=== PATIENT | male | born 1990 | race Caucasian/White ===

== ENCOUNTER 2018-01-12 23:11 | Emergency (ER) | payer BC ==
[2018-01-12 23:16] VITALS: BP 145/76
[2018-01-12] MEDS ORDERED: SILVER NITRATE APPLICATOR 1 APPL TP ONE (23:32)
--- NOTE | 2018-01-12 23:36 | EDPHY ---
H & P Stated Complaint: Cut L thumb on potato knife Source: Patient Exam Limitations: No limitations - Personal History Current Tetanus Diphtheria and Acellular Pertussis (TDAP): Yes - Medical/Surgical History Hx Asthma: No Hx Chronic Respiratory Disease: No Hx Diabetes: No Hx Cardiac Disease: No Hx Renal Disease: No Hx Cirrhosis: No Hx Alcoholism: No Hx HIV/AIDS: No Hx Splenectomy or Spleen Trauma: No Other PMH: kidney stone - Social History Smoking Status: Never smoked Time Seen by Provider: 01/12/18 23:23 HPI/ROS: HPI: This is a 27-year-old male who presents with Chief Complaint: Cut left thumb on knife Location: Left thumb Quality: Cut Duration: 3 hr prior to arrival Signs and Symptoms: + bleeding, no radiation, no numbness, no weakness, no tingling, no incontinence, no decreased range of motion, no swelling, no pain, no fever Timing: Acute Severity: Moderate Context: Patient is right-hand dominant, presents with accidentally cutting his left thumb finger tip on a [employer] chef knife while cutting potatoes for dinner this evening. Patient reports that he felt mild pain but quickly resolved. Patient reports that he applied a pressure dressing but the bleeding continued over the last 3 hr. He reports that the blood kept soaking through the Band-Aid. He does not take any blood thinners. He denies any paresthesias , decreased range of motion, nail involvement. Reports tetanus is current. Modifying Factors: Direct pressure, transient relief Comment: ROS: see HPI Constitutional: No fever, no chills, no weight loss Eyes: No blurred vision Respiratory: No shortness of breath, no cough Cardiovascular: No chest pain Gastrointestinal: No nausea, no vomiting no diarrhea Genitourinary: No dysuria Extremities: No myalgias Neurologic: No weakness, no numbness Skin: No rashes Hematologic: No bruising, no bleeding MEDICAL/SURGICAL/SOCIAL HISTORY: Medical history: Generally healthy. Does not take any regular medications. Surgical history: Denies Social history: Never smoked. Employed. CONSTITUTIONAL: awake and alert, no obvious distress HEENT: Atraumatic and normocephalic. NECK: supple EXTREMITIES: 2/2 pulses, strength 5/5, 1 cm superficial skin avulsion of the left thumb finger tip-active oozing of blood noted; nail intact. DIP/PIP/MCP flexion/extension intact with good light touch sensation. no deformities, no clubbing, no cyanosis or edema. NEUROLOGICAL: no focal neuro deficits. GCS 15. Light touch sensation intact. SKIN: Warm and dry, no erythema. no rash. Good capillary refill. (Jihan Abrams) Constitutional: Initial Vital Signs Temperature (C) 36.5 C 01/12/18 23:13 Heart Rate 72 01/12/18 23:13 Respiratory Rate 18 01/12/18 23:13 Blood Pressure 145/76 H 01/12/18 23:13 O2 Sat (%) 97 01/12/18 23:13 O2 Delivery Mode Room Air Allergies/Adverse Reactions: No Known Allergies Allergy (Unverified 01/12/18 23:13) Medical Decision Making Procedures: Procedure: Splint placement. A left thumb caged aluminum finger splint was applied by the Emergency Room explosive technician. After application of the splint I returned and re-examined the patient. The splint was adequately immobilizing the joint and distal to the splint the patient's circulation and sensation was intact. (Jihan Abrams) ED Course/Re-evaluation: Tetanus is current Local anesthetic applied of 1 mL of 1% lidocaine; irrigated copiously. Surgifoam and pressure dressing used to obtain good hemostasis. No indication for suture. Placed in cage finger splint to ensure no disruption of the area for the next 48 hr. No signs of neurovascular compromise/tenting of skin/compartment syndrome/ extremities and joints examined above and below area of concern and are neurovascularly intact. Verbal and written wound care instructions provided. This patient was seen under the supervision of my secondary supervising physician. I evaluated care for this patient independently. Discussed this patient with Dr. Elmore. (Jihan Abrams) PHYSICIAN DOCUMENTATION: The patient was evaluated and managed by the Physician Dining [employer]. My co- signature indicates that I have reviewed this chart and I agree with the findings and plan of care as documented. I am the secondary supervising physician. (Milagros Elmore) Differential Diagnosis: Differential diagnosis includes but is not limited to laceration, skin avulsion , tendon injury, nerve injury, nail injury. (Jihan Abrams) Departure - Departure Disposition: Home, Routine, Self-Care Clinical Impression: Avulsion of skin of finger without complication Condition: Good Instructions: Skin Avulsion (ED) Additional Instructions: Wear the splint for the next 2 days. Keep the splint/dressing dry and in place for 48 hours. After 48 hours, you may remove the dressing; wash the site daily with mild soap and water; then pat dry. Apply topical antibiotic ointment and clean sterile dressing until fully healed. Return to the ER immediately if you experience redness, red streaks, have fevers /chills, flu like symptoms, limited range of motion, or any other symptoms that concern you. Referrals: [facility],. [Clinic] - As per Instructions
== END 2018-01-12 23:52 | disposition home or self-care (01) ==
DX: S61.002A Unspecified open wound of left thumb without damage to nail, initial encounter (principal); W29.1XXA Contact with electric knife, initial encounter; Y93.G1 Activity, food preparation and clean up
CPT/HCPCS: L3925